=== PATIENT | female | born 1995 | race Two or more races ===

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

== ENCOUNTER 2020-07-03 15:01 | Emergency (ER) | payer OTHER, MEDICAID ==
[~2020-07-03] VITALS: Ht 165.1 cm; Wt 64.4 kg
[2020-07-03 15:02] VITALS: BP 110/46
== END 2020-07-03 17:28 | disposition home or self-care (01) ==
LOC: ER 15:01
DX: S06.0X0A Concussion without loss of consciousness, initial encounter (principal); J45.909 Unspecified asthma, uncomplicated; V49.9XXA Car occupant (driver) (passenger) injured in unspecified traffic accident, initial encounter; Y93.89 Activity, other specified; Y92.89 Other specified places as the place of occurrence of the external cause; Y99.8 Other external cause status
CPT/HCPCS: 70450

== ENCOUNTER 2020-08-10 09:54 | Emergency (ER) | payer OTHER, MEDICAID ==
[~2020-08-10] VITALS: Ht 165.1 cm; Wt 56.7 kg
[2020-08-10 10:19] VITALS: BP 114/61
[2020-08-10] MEDS ORDERED: cefTRIAXone SOD 1,000 MG VL IM ONE (10:45)
[2020-08-10] MEDS ORDERED: LIDOCAINE 1% HCL (LOCAL ANESTH.) INJ 20ML MDV ONE (10:48)
== END 2020-08-10 11:26 | disposition home or self-care (01) ==
LOC: ER 09:54
DX: J02.9 Acute pharyngitis, unspecified (principal); H66.92 Otitis media, unspecified, left ear; F41.9 Anxiety disorder, unspecified; J45.909 Unspecified asthma, uncomplicated
CPT/HCPCS: 96372; 99283; J0696; J2001

== ENCOUNTER 2020-08-27 20:45 | Emergency (ER) | payer OTHER, MEDICAID ==
[~2020-08-27] VITALS: Ht 162.6 cm; Wt 63.5 kg
[2020-08-27 20:46] VITALS: BP 117/53
[2020-08-28] MEDS ORDERED: methylPREDNISolone SOD SUCC 125 MG/2 ML VL IM ONE
== END 2020-08-28 00:24 | disposition home or self-care (01) ==
LOC: ER 20:48
DX: S13.4XXA Sprain of ligaments of cervical spine, initial encounter (principal); M62.838 Other muscle spasm; M50.30 Other cervical disc degeneration, unspecified cervical region; J45.909 Unspecified asthma, uncomplicated; W01.198A Fall on same level from slipping, tripping and stumbling with subsequent striking against other object, initial encounter; Y93.89 Activity, other specified; Y92.89 Other specified places as the place of occurrence of the external cause; Y99.8 Other external cause status
CPT/HCPCS: 70450; 72125; 72128; 96372; 99285; J2930

== ENCOUNTER 2021-01-31 18:24 | Emergency (ER) | payer OTHER, MEDICAID ==
[~2021-01-31] VITALS: Ht 162.6 cm; Wt 60.8 kg
[2021-01-31 18:29] VITALS: BP 155/83
[2021-01-31 19:41] LABS: Basophils # (auto) 0 10 ^3/uL (0-0.2); Basophils % (auto) 0.3 % (0.0-2.0); Eosinophils # (auto) 0 10 ^3/uL (0-0.8); Eosinophils % (auto) 0.2 % (0.0-7.0); Hematocrit 44.1 % (36.0-46.0); Hemoglobin 15.3 g/dL (12.2-16.2); Lymphocytes # (auto) 1.9 10 ^3/uL (0.4-5.4); Lymphocytes % (auto) 22.3 % (10.0-50.0); Mean Corpuscular Hemoglobin 31.2 pg (28.0-32.0); Mean Corpuscular Hgb Conc. 34.6 g/dL (32.0-36.0); Monocytes # (auto) 0.6 10 ^3/uL (0-1.3); Monocytes % (auto) 6.6 % (0.0-12.0); Neutrophils # (auto) 5.9 10 ^3/uL (1.6-8.6); Neutrophils % (auto) 70.6 % (37.0-80.0); Red Cell Distribution Width 12.4 % (11.8-14.3); White Blood Cell 8.4 10^3/uL (4.4-10.8)
[2021-01-31 19:46] LABS: Albumin 4.5 g/dL (3.4-5.0); Potassium 3.7 mmol/L (3.5-5.1)
[2021-01-31 19:55] LABS: BUN/Creatinine Ratio 14.3; Bilirubin, Total 1.3 mg/dL (0.2-1.0); Total Protein 8.1 g/dL (6.4-8.2)
[2021-01-31] MEDS ORDERED: FAMOTIDINE (10MG/ML) 2ML VL IV ONE (20:45)
[2021-01-31] MEDS ORDERED: SODIUM CHLORIDE 0.9% 1,000 ML IV ONE (20:45)
[2021-01-31] MEDS ORDERED: METOCLOPRAMIDE HCL 5MG/ml INJ 2ml VIAL IV ONE (20:45)
[2021-01-31] MEDS ORDERED: ACETAMINOPHEN 325 MG TAB PO ONE (20:45)
== END 2021-02-01 02:31 | disposition left against medical advice (07) ==
LOC: ER 18:24
DX: R51.9 Headache, unspecified (principal); R07.89 Other chest pain; J45.909 Unspecified asthma, uncomplicated
CPT/HCPCS: 36415; 71046; 80053; 84484; 85025; 93005; 96361; 96374; 96375; 99285; J2765; J3490; J7030

== ENCOUNTER → 2021-02-16 | Emergency (ER) | payer OTHER, MEDICAID ==
[~2021-02-16] VITALS: Ht 165.1 cm; Wt 56.7 kg
[2021-02-16 11:45] VITALS: BP 129/85
[2021-02-16 12:32] LABS: Urine Bacteria NONE SEEN /hpf (None Seen); Urine Blood 3+ /uL (Negative); Urine Mucus FEW (None Seen); Urine Specific Gravity 1.023 (1.001-1.035); Urine WBC 8 /hpf (0 - 5)
[2021-02-16 15:06] LABS: Basophils # (auto) 0.1 10 ^3/uL (0-0.2); Basophils % (auto) 0.7 % (0.0-2.0); Eosinophils # (auto) 0 10 ^3/uL (0-0.8); Eosinophils % (auto) 0.1 % (0.0-7.0); Hematocrit 45.9 % (36.0-46.0); Hemoglobin 15.9 g/dL (12.2-16.2); Lymphocytes # (auto) 1.5 10 ^3/uL (0.4-5.4); Lymphocytes % (auto) 19.2 % (10.0-50.0); Mean Corpuscular Hemoglobin 31.2 pg (28.0-32.0); Mean Corpuscular Hgb Conc. 34.7 g/dL (32.0-36.0); Mean Corpuscular Volume 89.8 fL (80.0-100.0); Monocytes # (auto) 0.5 10 ^3/uL (0-1.3); Monocytes % (auto) 6.4 % (0.0-12.0); Neutrophils # (auto) 5.6 10 ^3/uL (1.6-8.6); Neutrophils % (auto) 73.6 % (37.0-80.0); Nucleated Red Blood Cells % 0.1 %; Red Blood Cells 5.11 10^6/uL (4.0-5.20); Red Cell Distribution Width 12.5 % (11.8-14.3); White Blood Cell 7.6 10^3/uL (4.4-10.8)
[2021-02-16 15:24] LABS: Albumin 4.9 g/dL (3.4-5.0); Calcium 9.7 mg/dL (8.5-10.1)
[2021-02-16 15:28] LABS: BUN/Creatinine Ratio 8.7; Bilirubin, Total 1.2 mg/dL (0.2-1.0); INR 1.04 (0.9-1.15); Partial Thromboplastin Time 28.7 sec (23.6-33.0); Total Protein 8.7 g/dL (6.4-8.2)
== END | disposition left against medical advice (07) ==
LOC: ER 11:39
DX: N93.8 Other specified abnormal uterine and vaginal bleeding (principal); J45.909 Unspecified asthma, uncomplicated; Z88.4 Allergy status to anesthetic agent; Z91.040 Latex allergy status
CPT/HCPCS: 36415; 76830; 76856; 80053; 81001; 84702; 85025; 85610; 85730; 86850; 86900; 86901

== ENCOUNTER 2021-04-29 23:30 | Emergency (ER) | payer OTHER, MEDICAID ==
[~2021-04-29] VITALS: Ht 165.1 cm; Wt 54.4 kg
[2021-04-29 23:31] VITALS: BP 121/66
[2021-04-30 00:06] LABS: Basophils # (auto) 0 10 ^3/uL (0-0.2); Basophils % (auto) 0.4 % (0.0-2.0); Eosinophils # (auto) 0 10 ^3/uL (0-0.8); Eosinophils % (auto) 0.6 % (0.0-7.0); Hematocrit 38.7 % (36.0-46.0); Hemoglobin 13.6 g/dL (12.2-16.2); Lymphocytes # (auto) 1.6 10 ^3/uL (0.4-5.4); Lymphocytes % (auto) 23.2 % (10.0-50.0); Mean Corpuscular Hemoglobin 31.5 pg (28.0-32.0); Mean Corpuscular Hgb Conc. 35.1 g/dL (32.0-36.0); Mean Corpuscular Volume 89.7 fL (80.0-100.0); Monocytes # (auto) 0.6 10 ^3/uL (0-1.3); Neutrophils # (auto) 4.7 10 ^3/uL (1.6-8.6); Neutrophils % (auto) 67.8 % (37.0-80.0); Red Blood Cells 4.31 10^6/uL (4.0-5.20); Red Cell Distribution Width 12.8 % (11.8-14.3); White Blood Cell 6.9 10^3/uL (4.4-10.8)
[2021-04-30 00:17] LABS: Albumin 4.1 g/dL (3.4-5.0); BUN/Creatinine Ratio 9.8; Calcium 8.8 mg/dL (8.5-10.1); Potassium 3.8 mmol/L (3.5-5.1)
[2021-04-30 00:19] LABS: Bilirubin, Total 0.6 mg/dL (0.2-1.0); Total Protein 7.3 g/dL (6.4-8.2)
[2021-04-30 00:43] LABS: Urine Bacteria NONE SEEN /hpf (None Seen); Urine Blood 1+ /uL (Negative); Urine Mucus FEW (None Seen); Urine Specific Gravity 1.028 (1.001-1.035); Urine WBC 1 /hpf (0 - 5)
== END 2021-04-30 02:59 | disposition left against medical advice (07) ==
LOC: ER 23:34
DX: R10.30 Lower abdominal pain, unspecified (principal); Z53.21 Procedure and treatment not carried out due to patient leaving prior to being seen by health care provider
CPT/HCPCS: 36415; 80053; 81001; 83690; 84702; 85025

== ENCOUNTER 2021-11-08 11:45 | Emergency (ER) | payer OTHER, MEDICAID ==
[~2021-11-08] VITALS: Ht 165.1 cm; Wt 70.0 kg
[2021-11-08 12:48] VITALS: BP 106/80
[2021-11-08] MEDS ORDERED: cefTRIAXone SOD 1,000 MG VL IM ONE (13:15)
[2021-11-08] MEDS ORDERED: IBUPROFEN 600 MG TAB PO ONE (13:15)
[2021-11-08] MEDS ORDERED: PRED20TA2 PO (13:54)
[2021-11-08] MEDS ORDERED: ACET-1080 PO (13:54)
[2021-11-08] MEDS ORDERED: AMOX-277 PO (13:54)
== END 2021-11-08 14:02 | disposition home or self-care (01) ==
LOC: ER 11:45
DX: H66.91 Otitis media, unspecified, right ear (principal); J45.909 Unspecified asthma, uncomplicated; Z88.6 Allergy status to analgesic agent
CPT/HCPCS: 96372; 99283; J0696